=== PATIENT | male | born 1950 | race Caucasian/White ===

== ENCOUNTER 2017-03-07 09:00 | Day surgery (SDC) | payer MEDICARE, OTHER ==
[~2017-03-07] VITALS: Ht 185.4 cm; Wt 99.8 kg
[~2017-03-07 09:00] MED LIST: ACETAMINOPHEN 325 MG TAB PO PRN; BSS with VANC/TOB/EPI for EYE CASES IR ONE; CYCLOPENTOLATE 2% OPHTH SOLN 2ML BTL OS ONE; HEALON DUET (HEALON 10MG/ML 0.55ML & HEALON ENDOCOAT 30MG/ML 0.85ML) As Ordered ONE; LIDOCAINE 1% SDV 5 ML VIAL As Ordered ONE; LIDOCAINE 3.5 % 1ML OPHTH TOPICAL GEL OU ONE; MOXIFLOXACIN IN BSS 0.25MG/0.25ML INTRACAMERAL INJ (OR EYE ONLY)(J2280) As Ordered ONE; MULT1TAB10 PO; OFLOXACIN 0.3 % (OCUFLOX) OPTH SOL 5ML OS ONE; PHENYLEPHRINE 2.5% OPHTH SOL 2ML OS ONE; POVIDONE-IODINE 5% OPHTH PREP SOL 30ML As Ordered ONE; PRIL20CA9 PO; TRIAMCINOLONE PRES FR 40 MG/ML 1ML(TRIESENCE)(OR EYE ONLY)(J3300 PER 1MG) As Ordered ONE; TROPICAMIDE 1% OPHTH SOLN 2ML OS ONE
[2017-03-07] MEDS ORDERED: LR 500 ML IV ONE (09:15)
[2017-03-07] MEDS ORDERED: MIDAZOLAM INJ 2 MG/2 ML VIAL (J2250) As Ordered ONE (10:09)
[2017-03-07] MEDS ORDERED: fentaNYL 100 MCG/2 ML INJECTION (J3010) As Ordered ONE (10:09)
[2017-03-07 10:35] VITALS: BP 143/91
[2017-03-07] MEDS ORDERED: AcetaZOLAMIDE 500 MG ER CAP As Ordered ONE (10:47)
[2017-03-07] MEDS ORDERED: TRIMETHOBENZAMIDE 300 MG CAP PO PRN (11:00)
[2017-03-07] MEDS ORDERED: AcetaZOLAMIDE 500 MG ER CAP PO ONE (11:00)
== END 2017-03-07 10:53 | disposition home or self-care (01) ==
LOC: M SDC 09:00
PROVIDERS: ATTEND Ophthalmology
DX: H25.9 Unspecified age-related cataract (principal); K21.9 Gastro-esophageal reflux disease without esophagitis; Z79.899 Other long term (current) drug therapy
CPT/HCPCS: 66984; J2250; J2280; J3010; J3300; V2632

== ENCOUNTER 2017-12-12 08:02 | Day surgery (SDC) | payer MEDICARE ==
[~2017-12-12 08:02] MED LIST changes: +ACETAMINOPHEN 325 MG TAB PO; -ACETAMINOPHEN 325 MG TAB PO PRN; -BSS with VANC/TOB/EPI for EYE CASES IR ONE; -CYCLOPENTOLATE 2% OPHTH SOLN 2ML BTL OS ONE; -HEALON DUET (HEALON 10MG/ML 0.55ML & HEALON ENDOCOAT 30MG/ML 0.85ML) As Ordered ONE; -LIDOCAINE 1% SDV 5 ML VIAL As Ordered ONE; -LIDOCAINE 3.5 % 1ML OPHTH TOPICAL GEL OU ONE; -MOXIFLOXACIN IN BSS 0.25MG/0.25ML INTRACAMERAL INJ (OR EYE ONLY)(J2280) As Ordered ONE; -MULT1TAB10 PO; -OFLOXACIN 0.3 % (OCUFLOX) OPTH SOL 5ML OS ONE; -PHENYLEPHRINE 2.5% OPHTH SOL 2ML OS ONE; +PHENYLEPHRINE HCL 10 % OPHTH. SOL 5ML OD; -POVIDONE-IODINE 5% OPHTH PREP SOL 30ML As Ordered ONE; -PRIL20CA9 PO; -TRIAMCINOLONE PRES FR 40 MG/ML 1ML(TRIESENCE)(OR EYE ONLY)(J3300 PER 1MG) As Ordered ONE; -TROPICAMIDE 1% OPHTH SOLN 2ML OS ONE
[2017-12-12] MEDS: TROPICAMIDE 1% OPHTH SOLN 2ML OD (09:16)
[2017-12-12] MEDS: OFLOXACIN 0.3 % (OCUFLOX) OPTH SOL 5ML OD (09:16)
[2017-12-12] MEDS: PHENYLEPHRINE 2.5% OPHTH SOL 2ML OD (09:17)
[2017-12-12] MEDS: CYCLOPENTOLATE 2% OPHTH SOLN 2ML BTL OD (09:17)
[2017-12-12] MEDS: LIDOCAINE 3.5 % 1ML OPHTH TOPICAL GEL OU (09:18)
[2017-12-12] MEDS: POVIDONE-IODINE 5% OPHTH PREP SOL 30ML As Ordered (10:09)
[2017-12-12] MEDS ORDERED: MIDAZOLAM INJ 2 MG/2 ML VIAL (J2250) As Ordered (10:12)
[2017-12-12] MEDS ORDERED: fentaNYL 100 MCG/2 ML INJECTION (J3010) As Ordered (10:12)
[2017-12-12] MEDS: LIDOCAINE 1% SDV 5 ML VIAL As Ordered (10:13)
[2017-12-12] MEDS: TRIAMCINOLONE PRES FR 40 MG/ML 1ML(TRIESENCE)(OR EYE ONLY)(J3300 PER 1MG) As Ordered (10:13)
[2017-12-12] MEDS: MOXIFLOXACIN IN BSS 0.25MG/0.25ML INTRACAMERAL INJ (OR EYE ONLY)(J2280) As Ordered (10:13)
[2017-12-12] MEDS: BSS with VANC/TOB/EPI for EYE CASES IR (10:13)
[2017-12-12] MEDS: HEALON DUET (HEALON 10MG/ML 0.55ML & HEALON ENDOCOAT 30MG/ML 0.85ML) As Ordered (10:13)
[2017-12-12] MEDS ORDERED: TRIMETHOBENZAMIDE 300 MG CAP PO (10:45)
[2017-12-12] MEDS: AcetaZOLAMIDE 500 MG ER CAP PO (11:00)
== END 2017-12-12 11:05 | disposition home or self-care (01) ==
LOC: M SDC 08:02
DX: H25.9 Unspecified age-related cataract (principal); I50.9 Heart failure, unspecified; Z79.82 Long term (current) use of aspirin; K21.9 Gastro-esophageal reflux disease without esophagitis; Z87.891 Personal history of nicotine dependence; Z79.899 Other long term (current) drug therapy
CPT/HCPCS: 66984

== ENCOUNTER → 2018-02-26 | Outpatient (CLI) | payer MEDICARE ==
[2018-02-26 15:28] LABS: HEMATOCRIT 37.9 % (42.0-52.0); HEMOGLOBIN 13.1 g/dl (13.5-17.5); MEAN CORPUSCULAR HEMOGLOBIN 32.3 pg (27.0-33.0); MEAN CORPUSCULAR HGB CONC 34.6 g/dl (32.0-36.5); MEAN CORPUSCULAR VOLUME 93.3 fl (80.0-96.0); PLATELET COUNT, AUTOMATED 233 10^3/uL (150-450); RED BLOOD COUNT 4.06 10^6/uL (4.30-6.10); RED CELL DISTRIBUTION WIDTH 12.4 % (11.5-14.5); WHITE BLOOD COUNT 7.8 10^3/uL (4.0-10.0)
[2018-02-26 23:38] LABS: ANION GAP 8 MEQ/L (8-16); BLOOD UREA NITROGEN 22 MG/DL (7-18); CARBON DIOXIDE LEVEL 26 MEQ/L (21-32); CHLORIDE LEVEL 103 MEQ/L (98-107); GLOMERULAR FILTRATION RATE > 60.0 (>49); GLUCOSE, FASTING 101 MG/DL (70-100); POTASSIUM SERUM 4.1 MEQ/L (3.5-5.1); SODIUM LEVEL 137 MEQ/L (136-145)
== END ==
LOC: M LAB 14:55
DX: I50.42 Chronic combined systolic (congestive) and diastolic (congestive) heart failure (principal)

== ENCOUNTER → 2018-02-26 | Outpatient (CLI) | payer MEDICARE ==
[2018-02-26 15:28] LABS: BASO % 0.5 % (0.0-1.0); EOS # 0.2 10^3/uL (0.0-0.50); EOS % 2.3 % (0.0-3.0); HEMATOCRIT 37.9 % (42.0-52.0); HEMOGLOBIN 13.2 g/dl (13.5-17.5); IMMATURE GRANULOCYTE % 0.4 % (0-3.0); LYMPH # 2.8 10^3/uL (1.5-4.5); LYMPH % 35.4 % (24.0-44.0); MEAN CORPUSCULAR HEMOGLOBIN 32.4 pg (27.0-33.0); MEAN CORPUSCULAR HGB CONC 34.8 g/dl (32.0-36.5); MEAN CORPUSCULAR VOLUME 93.1 fl (80.0-96.0); MONO # 0.6 10^3/uL (0.0-0.8); NEUTROPHILS # 4.3 10^3/uL (1.8-7.7); NEUTROPHILS % 54.4 % (36.0-66.0); PLATELET COUNT, AUTOMATED 237 10^3/uL (150-450); RED BLOOD COUNT 4.07 10^6/uL (4.30-6.10); RED CELL DISTRIBUTION WIDTH 12.4 % (11.5-14.5); WHITE BLOOD COUNT 7.9 10^3/uL (4.0-10.0)
[2018-02-26 22:14] LABS: ANION GAP 11 MEQ/L (8-16); BLOOD UREA NITROGEN 22 MG/DL (7-18); CALCIUM LEVEL 9.2 MG/DL (8.8-10.2); CARBON DIOXIDE LEVEL 23 MEQ/L (21-32); CHLORIDE LEVEL 103 MEQ/L (98-107); CREATININE FOR GFR 0.92 MG/DL (0.70-1.30); GLOMERULAR FILTRATION RATE > 60.0 (>49); GLUCOSE, FASTING 99 MG/DL (70-100); POTASSIUM SERUM 4.2 MEQ/L (3.5-5.1); SODIUM LEVEL 137 MEQ/L (136-145)
== END ==
LOC: M LAB 14:43
DX: Z01.818 Encounter for other preprocedural examination (principal)
CPT/HCPCS: 80048

== ENCOUNTER → 2018-12-07 | Outpatient (CLI) | payer MEDICARE ==
[~2018-12-07] MED LIST changes: -ACETAMINOPHEN 325 MG TAB PO; +ASPI81TA85 PO; +CARV3.12 PO; +DULO1CAP3 PO; +ENTR1TAB7 PO; +FURO20TA2 PO; +MULT1TAB10 PO; +NEXI20CA PO; -PHENYLEPHRINE HCL 10 % OPHTH. SOL 5ML OD; +PRIL20CA9 PO; +SPIR-10 PO
[2018-12-07 16:44] LABS: FREE T4 0.73 NG/DL (0.76-1.46); THYROID STIMULATING HORMONE 1.86 uIU/ML (0.358-3.740)
== END ==
LOC: M WUC 14:23
PROVIDERS: ATTEND Internal Medicine Endocrinology, Diabetes & Metabolism
DX: E04.1 Nontoxic single thyroid nodule (principal)

== ENCOUNTER → 2018-12-24 | Outpatient (REF) | payer MEDICARE ==
[~2018-12-24] MED LIST changes: -DULO1CAP3 PO; +DULO1CAP6 PO
== END ==
LOC: M LAB REF 11:44
PROVIDERS: ATTEND Internal Medicine Endocrinology, Diabetes & Metabolism
DX: E07.1 Dyshormogenetic goiter (principal)

== ENCOUNTER → 2018-12-26 | Outpatient (CLI) | payer MEDICARE ==
[2018-12-26 17:55] LABS: BLOOD UREA NITROGEN 21 MG/DL (7-18); CALCIUM LEVEL 9.1 MG/DL (8.8-10.2); CARBON DIOXIDE LEVEL 26 MEQ/L (21-32); CHLORIDE LEVEL 105 MEQ/L (98-107); CREATININE FOR GFR 0.88 MG/DL (0.70-1.30); GLOMERULAR FILTRATION RATE > 60.0 (>49); GLUCOSE, FASTING 91 MG/DL (70-100); NT-PRO BNP 92 PG/ML (<125); POTASSIUM SERUM 4.8 MEQ/L (3.5-5.1); SODIUM LEVEL 138 MEQ/L (136-145)
== END ==
LOC: M WUC 12:02
PROVIDERS: ATTEND Internal Medicine Cardiovascular Disease
DX: I50.22 Chronic systolic (congestive) heart failure (principal)

== ENCOUNTER → 2019-01-03 | Outpatient (CLI) | payer MEDICARE ==
--- NOTE | 2019-01-07 19:48 | SLEEPCENT ---
DATE OF PROCEDURE: 01/03/2019 ORDERED BY: VANESSA Lehman Nocturnal polysomnography was performed for evaluation of sleep physiology in this patient with a history of excessive somnolence and nonrestorative sleep. 6 hours and 36 minutes of data were reviewed. There were 256 minutes of sleep identified. Sleep latency was prolonged and 76 minutes. REM latency was prolonged at 139 minutes. Sleep architecture showed fragmentation and poor progression. There were three brief REM cycles. Overall sleep efficiency 66.1%. The patient's electrocardiogram showed what appeared to be atrial fibrillation with controlled ventricular response rate of 68. EEG showed reasonably normal waveforms for awake and sleep. There were 422 respiratory events identified of 10 seconds in duration or greater for apnea-hypopnea index of 99.1. The events were primarily obstructive but 149 mixed and central apneas were seen. The events were more frequent in the supine posture. Arousals from respiratory events occurred 51.4 times per hour and oxygen desaturations were seen into the 80s. There was some limb activity but arousals from limb events were few. IMPRESSION: Severe obstructive sleep apnea syndrome (G47.33). Apnea-hypopnea index 99.1. RECOMMENDATIONS: The patient should be encouraged to return to the sleep disorder center at his earliest convenience for pressure therapy. In the interim, alcohol and sedative avoidance should be practiced and caution exercised during the operation of motor vehicles.
== END ==
LOC: M SLEEP 19:22
PROVIDERS: ATTEND Nurse Practitioner Family
DX: G47.33 Obstructive sleep apnea (adult) (pediatric) (principal)

== ENCOUNTER → 2019-02-12 | Outpatient (CLI) | payer MEDICARE ==
--- NOTE | 2019-02-14 20:53 | SLEEPCENT ---
DATE OF PROCEDURE: 02/12/2019 Nocturnal polysomnography was performed for the titration of pressure therapy in this patient with obstructive sleep apnea syndrome. Apnea-hypopnea index of 99.1. For testing the patient was fit with a ResMed Quattro full face mask of medium size, 4 cm of water pressure were applied to the circuit and the lights were extinguished. 7 hours and 21 minutes of data were reviewed. There are 300.5 minutes of sleep identified. Sleep latency was prolonged at 39 minutes. Rapid eye movement (REM) latency was normal at 93 minutes. Sleep architecture showed fragmentation, but the patient did experience REM on four cycles. Overall sleep efficiency 69%. The electrocardiogram showed an irregular supraventricular rhythm with an average heart rate of 65 beats per minute. EEG showed reasonably normal waveforms for awake and sleep. Persistence of respiratory events prompted an increase in continuous positive airway pressure (CPAP) and despite optimal mask fit and minimal air leak, the patient was changed to a bilevel device. Central apneas emerged prompting the addition of a backup rate. In retrospective review, best sleep was seen on a CPAP pressure of +12. Some limb activity was seen early in the study. Arousals from limb events on this occasion occurred 7.8 times per hour. IMPRESSION: Obstructive sleep apnea syndrome (G47.33). RECOMMENDATION: Nightly use of pressure therapy 12 cm of water.
== END ==
LOC: M SLEEP 19:42
PROVIDERS: ATTEND Nurse Practitioner Family
DX: G47.33 Obstructive sleep apnea (adult) (pediatric) (principal)

== ENCOUNTER → 2019-11-19 | Outpatient (REF) | payer MEDICARE | LOC: M LAB REF 14:17 | PROVIDERS: ATTEND Otolaryngology | DX: R22.1 Localized swelling, mass and lump, neck (principal) ==

== ENCOUNTER → 2019-12-06 | Outpatient (REF) | payer MEDICARE ==
[~2019-12-06] MED LIST changes: +BACI50OI TOP; +EXCETAB22 PO; +KEFL500C17 PO; +OXYC1TAB23 PO; +PEG1POW PO; +SENN-52 PO; +ZOFR4TAB16 PO
== END ==
LOC: M LAB REF 14:48
PROVIDERS: ATTEND Otolaryngology
DX: R22.1 Localized swelling, mass and lump, neck (principal)

== ENCOUNTER → 2019-12-10 | Outpatient (CLI) | payer MEDICARE ==
--- NOTE | 2019-12-11 10:35 | REP ---
PET/CT: HISTORY: Neck mass. A 3.1 cm exophytic right submandibular mass. Atypical cytology. Rule out distant metastasis. COMPARISONS: Comparison soft-tissue neck CT study November 21, 2019. TECHNIQUE: 50 minutes following the intravenous injection of a 9.32 mCi dose of F-18 FDG, three-dimensional PET scintigraphy is acquired from the skull base to the proximal thighs. Triplanar noncontrast CT scanning is acquired through the same anatomic range for attenuation correction, and image registration with scan parameters optimized to minimize radiation exposure to the patient. PET scintigraphy and CT datasets were fused and displayed on a workstation with multiplanar and projection display capability. PET/CT FINDINGS: There is abnormal hypermetabolic uptake in the right submandibular soft tissue mass. Maximum standard uptake value 13.80. There is increased uptake in the midline in the area of the soft palate, which is of uncertain significance. Maximum standard uptake values 6.49. Correlation with intraoral exam suggested. No other abnormal hypermetabolic uptake is seen in the head and neck soft tissues. The patient has a heterogeneous low density chronic thyroid nodule on the left, which does not show hypermetabolic uptake. Maximum SUV 2.58. No abnormal hypermetabolic uptake is seen in the thorax. No abnormal uptake is seen in the abdomen or pelvis. IMPRESSION: The known right submandibular mass is quite hypermetabolic. There is uptake in the region of the soft palate in the midline which should be correlated clinically. Otherwise negative PET scintigraphy. Electronically Signed by Maurice Bridges MD 12/11/2019 02:56 P
== END ==
LOC: M PLARAD 15:29
PROVIDERS: ATTEND Otolaryngology
DX: E04.1 Nontoxic single thyroid nodule (principal); R89.6 Abnormal cytological findings in specimens from other organs, systems and tissues; R93.0 Abnormal findings on diagnostic imaging of skull and head, not elsewhere classified
CPT/HCPCS: 78815; A9552

== ENCOUNTER → 2019-12-10 | Outpatient (CLI) | payer MEDICARE | LOC: M LABSMTC 11:29 | PROVIDERS: ATTEND Anesthesiology | DX: Z03.818 Encounter for observation for suspected exposure to other biological agents ruled out (principal); Z11.59 Encounter for screening for other viral diseases | CPT/HCPCS: C9803; U0002 ==

== ENCOUNTER 2019-12-12 07:13 | Observation (INO) | payer MEDICARE ==
[2019-12-12] VITALS (9 sets, daily range): BP systolic 128–180; BP diastolic 67–88; O2SAT 93–95
[~2019-12-12] VITALS: Ht 185.4 cm; Wt 104.3 kg
[~2019-12-12 07:13] MED LIST changes: -ASPI81TA85 PO; +ASPI81TA86 PO; -BACI50OI TOP; -EXCETAB22 PO; -KEFL500C17 PO; +LR 1,000 ML IV ONE; -OXYC1TAB23 PO; -PEG1POW PO; -SENN-52 PO; -ZOFR4TAB16 PO; +dexameTHASONE 4 MG/ML 1ML VIAL (J1100 PER 1MG) IV ONE
[2019-12-12] MEDS ORDERED: EXCETAB22 PO (07:36)
[2019-12-12] MEDS ORDERED: dexameTHASONE 4 MG/ML 1ML VIAL (J1100 PER 1MG) As Ordered ONE (07:57)
[2019-12-12] MEDS ORDERED: LIDOCAINE 2% 100MG/5ML SDV (FOR ANES.) As Ordered ONE (07:57)
[2019-12-12] MEDS ORDERED: propofoL 200 MG/20 ML VIAL As Ordered ONE (07:57)
[2019-12-12] MEDS ORDERED: ROCURONIUM BROMIDE 50 MG/5 ML VIAL As Ordered ONE (07:57)
[2019-12-12] MEDS ORDERED: ONDANSETRON 4MG/2ML VIAL As Ordered ONE ×2 (07:57→11:29)
[2019-12-12] MEDS ORDERED: MIDAZOLAM INJ 2MG/2ML VIAL (J2250 PER 1MG) As Ordered ONE (07:58)
[2019-12-12] MEDS ORDERED: fentaNYL 250 MCG/5 ML INJECTION (J3010) As Ordered ONE (07:58)
[2019-12-12] MEDS ORDERED: LACRILUBE (AKWA TEARS) OPHTH OINT 3.5 GM As Ordered ONE (07:59)
[2019-12-12 08:06] LABS: HEMATOCRIT 38.6 % (42.0-52.0); HEMOGLOBIN 13.3 g/dl (13.5-17.5); MEAN CORPUSCULAR HEMOGLOBIN 31.7 pg (27.0-33.0); MEAN CORPUSCULAR HGB CONC 34.5 g/dl (32.0-36.5); MEAN CORPUSCULAR VOLUME 92.1 fl (80.0-96.0); PLATELET COUNT, AUTOMATED 243 10^3/uL (150-450); RED BLOOD COUNT 4.19 10^6/uL (4.30-6.10); WHITE BLOOD COUNT 6.9 10^3/uL (4.0-10.0)
[2019-12-12] MEDS ORDERED: ETOMIDATE INJ 20MG/10ML VIAL As Ordered ONE (08:06)
[2019-12-12] MEDS ORDERED: METHYLENE BLUE 0.5% (5MG/ML) 10 ML AMP (PROVAYBLUE) As Ordered ONE (08:06)
[2019-12-12] MEDS ORDERED: LIDOCAINE W/EPINEPHRINE 1% 20ML VIAL As Ordered ONE (08:06)
[2019-12-12] MEDS ORDERED: OXYMETAZOLINE 0.05% NASAL SPRAY (AFRIN) As Ordered ONE (08:07)
[2019-12-12 08:28] LABS: BLOOD UREA NITROGEN 23 MG/DL (7-18); CALCIUM LEVEL 8.9 MG/DL (8.8-10.2); CARBON DIOXIDE LEVEL 24 MEQ/L (21-32); CHLORIDE LEVEL 107 MEQ/L (98-107); CREATININE FOR GFR 0.97 MG/DL (0.70-1.30); GLOMERULAR FILTRATION RATE > 60.0 (>49); GLUCOSE, FASTING 105 MG/DL (70-100); POTASSIUM SERUM 4.1 MEQ/L (3.5-5.1); SODIUM LEVEL 139 MEQ/L (136-145)
[2019-12-12] MEDS ORDERED: SILVER NITRATE APPLICATOR As Ordered ONE (10:00)
[2019-12-12] MEDS ORDERED: REMIFENTANIL 1MG 3ML VIAL As Ordered ONE ×2 (10:16→10:17)
[2019-12-12] MEDS ORDERED: ePHEDrine SULFATE 25 MG/5 ML(5MG/ML) SYRINGE As Ordered ONE (10:35)
[2019-12-12] MEDS ORDERED: ACETAMINOPHEN 1000MG 100ML IV BTL (OFIRMEV) (J0131 PER 10MG) As Ordered ONE (11:24)
[2019-12-12] MEDS ORDERED: SUGAMMADEX SODIUM 500 MG/5 ML VIAL (BRIDION) As Ordered ONE (11:30)
[2019-12-12] MEDS ORDERED: HYDROmorphone HCL 2 MG/ML 1ML VIAL (J1170) As Ordered ONE (13:34)
[2019-12-12] MEDS ORDERED: BACITRACIN OINTMENT 30GM TUBE As Ordered ONE (14:02)
[2019-12-12] MEDS ORDERED: LABETALOL 100MG/20ML VIAL As Ordered ONE ×2 (14:16→17:11)
[2019-12-12] MEDS ORDERED: METOCLOPRAMIDE INJ 10MG/2ML VIAL (J2765 PER 1) IV PRN (15:00)
[2019-12-12] MEDS ORDERED: PERCOCET 5MG/325MG TAB PO PRN (15:00)
[2019-12-12] MEDS ORDERED: ONDANSETRON 4MG/2ML VIAL IV PRN ×2 (15:00→15:30)
[2019-12-12] MEDS ORDERED: LR 1,000 ML IV SCH (15:00)
[2019-12-12] MEDS ORDERED: fentaNYL 100 MCG/2 ML INJECTION (J3010) IV PRN (15:00)
[2019-12-12] MEDS: LABETALOL 100MG/20ML VIAL IV SCH ×5 (15:14→20:03)
[2019-12-12] MEDS: HYDROMORPHONE HCL 0.5 MG/ 0.5 ML SYRINGE (J1170 PER 1) IV PRN ×2 (15:17→15:55)
[2019-12-12] MEDS ORDERED: NS 1,000 ML IV SCH (15:27)
[2019-12-12] MEDS ORDERED: MORPHINE 4 MG/ML 1ML VIAL/SYRINGE (J2270) IV PRN (15:45)
--- NOTE | 2019-12-12 15:57 | HPEPDOC ---
General Date of Admission 12/12/2019 Date of Service: Dec 12, 2019 Chief Complaint The patient is a 69-year-old male admitted with a reason for visit of Right Neck Mass. Source: Patient, Old records Exam Limitations: Clinical conditions Severity: Moderate Associated Symptoms: Other (throat pain) History of Present Illness Patient is a 69 yo male with PMH of systolic CHF LVEF 25-30% s/p defibrillator placement, ENRRIQUE, and right sided neck mass admitted to [facility] for observation after same day surgery on 12/12/2019 with direct suspension microlaryncoscopy with major biopsy and right modified radical neck dissection. Pt currently denies any chest pain, palpitation, dyspnea, neck pain, abdominal pain, nausea, or vomiting. He reported some sore throat after the procedure/intubation. Pt voices no other complaints Home Medications Scheduled Aspirin (Aspir 81) 81 Mg Tab, 81 MG PO DAILY, (Reported) Bacitracin (Bacitracin) 28.4 Gm Oint...g., 0 DOSE TOP TID Carvedilol (Carvedilol) 3.125 Mg Tab, 3.125 MG PO BID, (Reported) Cephalexin (Keflex) 500 Mg Capsule, 1 CAP PO BID Duloxetine Hcl (Duloxetine HCl) 60 Mg Cap, 60 MG PO DAILY, (Reported) Esomeprazole Magnesium (Nexium) 20 Mg Cap, 40 MG PO DAILY, (Reported) Furosemide (Furosemide) 20 Mg Tab, 20 MG PO DAILY, (Reported) Sacubitril/Valsartan (Entresto 49 mg-51 mg Tablet) 1 Tab Tab, 1 TAB PO BID, (Rep orted) Spironolactone (Spironolactone) 25 Mg Tab, 25 MG PO DAILY, (Reported) Scheduled PRN Ondansetron HCl (Zofran) 4 Mg Tablet, 4 MG PO Q6-8HP PRN for nausea/vomiting Oxycodone HCl/Acetaminophen (Oxycodone-Acetaminophen 5-325) 1 Each Tablet, 1 TAB PO BIDP PRN for pain Polyethylene Glycol 3350 (Polyethylene Glycol 3350) 17 Gm Powd.pack, 1 PKT PO DAILYPRN PRN for CONSTIPATION Sennosides/Docusate Sodium (Senna Plus Tablet) 1 Each Tablet, 1 TAB PO DAILYPRN PRN for CONSTIPATION Miscellaneous Medications Aspirin/Acetaminophen/Caffeine (Excedrin Migraine Geltab) 1 Each Tablet, 1 EACH PO, (Reported) Allergies Coded Allergies: No Known Allergies (Unverified , 12/12/17) Past Medical History Medical History 1. Idiopathic dilated cardiomyopathy 2. Systolic congestive heart failure, LVEF 25-30% s/p ICD placement 3. GERD 4. 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 Pt reported lower back fusion, s/p unspecified back surgery 6. ENRRIQUE Surgical History Cardiac cath [id number] CAD, normal systemic pressure ICD placement, biotronic single lead device Inventra 7 VR-T DX vt 02/2018 Dr. Larios. Right total knee replacement 2018 Resection of SCC from lower lip 02/2018 Septoplasty Family History Father-lung CA Mother-heart failure Social History * Smoker: Denies lives at home A-FIB/CHADSVASC A-FIB History Current/History of A-Fib/PAF?: No Review of Systems Constitutional: Denies: Chills, Fever ENT: Reports: Other Symptoms (Denies neck pain. Some sore throat after the procedure) Pulmonary: Denies: Dyspnea Cardiovascular: Denies: Chest Pain Gastrointestinal: Denies: Nausea, Vomiting, Abdominal Pain Physical Examination General Exam: Positive: Alert, Cooperative, Mild Distress, Other (Obese, hoarse voice) Eye Exam: Positive: Conjunctiva & lids normal; Negative: Sclera icteric ENT Exam: Positive: Mucous membr. moist/pink, Tongue Midline, Other ENT (able to move tongue bilaterally. ) Neck Exam: Positive: Other (2 VIKI drainage on right side neck with blood. Incisions on right sided neck); Negative: Supple Chest Exam: Positive: Normal air movement, Rales (mild on left), Diminished (bilaterally); Negative: Rhonchi, Wheezing Heart Exam: Positive: Rate Normal, Regular Rhythm; Negative: Murmurs Abdomen Exam: Positive: BS Hypoactive, Soft; Negative: Tenderness Extremity Exam: Negative: Edema, Tenderness, Swelling Skin Exam: Positive: Nl turgor and temperature Neuro Exam: Positive: Other (hoarseness. Decreased speech d/t pain) Psych Exam: Positive: Mental status NL, Mood NL, Memory Intact, Oriented x 3; Negative: Anxiety Vital Signs Vital Signs Date Time Temp Pulse Resp B/P (MAP) Pulse Ox O2 Delivery O2 Flow Rate FiO2 12/12/19 15:17 16 94 Nasal Cannula 4.0 12/12/19 15:14 87 177/77 12/12/19 08:10 97 Laboratory Data Labs 24H Laboratory Tests 2 12/12/19 07:53: Nucleated Red Blood Cells % (auto) 0.0, Anion Gap 8, Glomerular Filtration Rate > 60.0, Calcium Level 8.9 CBC/BMP Laboratory Tests 12/12/19 07:53 Assessment/Plan Pt is a 69 yo male with hx of idiopathic dilated cardiomyopathy and chronic systolic CHF EF 25-30% s/p ICD placement in 2017 admitted to [facility] for observation d/t right neck mass s/p direct suspension microlaryngoscopy with major biopsy and right modified radical neck dissection 1. Right neck mass s/p right modified radical neck dissection. [address] on right side neck. Discussed with ENT Dr. Maciel, will have pt on soft diet, high suctioning for VIKI drain, elevate head of BED. Pt already had cefuroximie 1.5g IV Q8H and bacitracin topical TID ordered. ENRRIQUE protocol but will not have pt on CPAP d/t neck surgery, will be on NC; cont pulse ox monitoring to keep pulse ox>94%. Nursing order to instruct patient to take care of VIKI drain. Morphine, tylenol, and zofran PRN. Pt will be admitted to PCU with vital signs Q4H. 2. Dilated idiopathic cardiomyopathy. PMH of idiopathic dilated cardiomyopathy. Resume home med carvedilol, Entresto, lasix and spironolactone. 3. Chronic systolic congestive heart failure, LVEF 25-30% s/p ICD placement 02/2018, currently compensated. ICD last checked 09/2019 normal function>98% sensed. LVEF 25-30% by echo 10/05/2018 in [place]. Resume home med carvedilol, Entresto, lasix and spironolactone. 4. Elevated blood pressure without diagnosis of hypertension, 2/2 pain. Pt received IV labetalol, cont to monitor BP. Resume home carvedilol, lasix, and s pironolactone. 5. GERD. Will have pt on IV protonix now. Hold home med nexium for now. 6. Non-obstructive CAD. Hx of nonobstructive CAD by cardiac cath 09/20/2018. Currently denies any chest pain, palpitation, or dyspnea. Cont home med carvedilol and aspirin. 7. ENRRIQUE. ENRRIQUE protocol without CPAP d/t neck surgery. Keep oxygen >94%. Elevated bed of head DVT prophylaxis: lovenox GI prophylaxis: protonix DISPO: right neck mass s/p right radical neck dissection, monitor. [address] on right side neck. Likely discharge 24-48hr if clinically stable Plan / VTE VTE Prophylaxis Ordered?: Yes Plan Diet: Advance Activity: Bedrest Therapy: PT Diagnostics: Check Labs, Repeat Labs in AM Anticipated Discharge: Home GME ATTESTATION I have personally evaluated and examined the patient. Discussed with reside nt/student regarding plan of care and agree with the above assessment and plan. MALKA SALDANA DO Dec 12, 2019 15:57 TIM GIRON MD Dec 20, 2019 08:36
[2019-12-12] MEDS ORDERED: MIRALAX *UNIT DOSE* 17GM PACKET PO PRN (16:30)
[2019-12-12] MEDS ORDERED: PANTOPRAZOLE 40MG VIAL (C9113 PER 1) IV SCH (18:00)
[2019-12-12] MEDS: ACETAMINOPHEN TAB 650MG DOSE (2X325MG) PO PRN (18:23)
[2019-12-12] MEDS: BACITRACIN OINTMENT 30GM TUBE TOP SCH ×2 (19:00→21:05)
[2019-12-12] MEDS: SPIRONOLACTONE 25 MG TAB PO SCH (20:57)
[2019-12-12] MEDS: FUROSEMIDE 20 MG TAB PO SCH (20:57)
[2019-12-12] MEDS ORDERED: ENOXAPARIN 30MG/0.3ML SYRINGE (J1650 PER 10MG) SC SCH (21:00)
[2019-12-12] MEDS: ENTRESTO 49-51MG TABLET (SACUBITRIL/VALSARTAN) PO SCH (21:04)
[2019-12-13] VITALS (9 sets, daily range): BP systolic 129–166; BP diastolic 64–75; O2SAT 93–96
[2019-12-13] MEDS: ACETAMINOPHEN TAB 650MG DOSE (2X325MG) PO PRN ×2 (00:49→08:23)
[2019-12-13 05:37] LABS: HEMATOCRIT 38.4 % (42.0-52.0); HEMOGLOBIN 13.1 g/dl (13.5-17.5); MEAN CORPUSCULAR HEMOGLOBIN 31.8 pg (27.0-33.0); MEAN CORPUSCULAR HGB CONC 34.1 g/dl (32.0-36.5); MEAN CORPUSCULAR VOLUME 93.2 fl (80.0-96.0); PLATELET COUNT, AUTOMATED 242 10^3/uL (150-450); RED BLOOD COUNT 4.12 10^6/uL (4.30-6.10); WHITE BLOOD COUNT 13.1 10^3/uL (4.0-10.0)
[2019-12-13 05:55] LABS: BLOOD UREA NITROGEN 12 MG/DL (7-18); CALCIUM LEVEL 9.1 MG/DL (8.8-10.2); CARBON DIOXIDE LEVEL 29 MEQ/L (21-32); CHLORIDE LEVEL 108 MEQ/L (98-107); CREATININE FOR GFR 0.95 MG/DL (0.70-1.30); GLOMERULAR FILTRATION RATE > 60.0 (>49); GLUCOSE, FASTING 125 MG/DL (70-100); POTASSIUM SERUM 4.4 MEQ/L (3.5-5.1); SODIUM LEVEL 142 MEQ/L (136-145)
[2019-12-13] MEDS ORDERED: CARVedilol 3.125 MG TAB PO SCH (06:00)
[2019-12-13] MEDS: SPIRONOLACTONE 25 MG TAB PO SCH (08:23)
[2019-12-13] MEDS: FUROSEMIDE 20 MG TAB PO SCH (08:23)
[2019-12-13] MEDS: ENTRESTO 49-51MG TABLET (SACUBITRIL/VALSARTAN) PO SCH (08:23)
[2019-12-13] MEDS: BACITRACIN OINTMENT 30GM TUBE TOP SCH (08:24)
[2019-12-13] MEDS ORDERED: ASPIRIN 81 MG ENTERIC TAB PO SCH (09:00)
[2019-12-13] MEDS ORDERED: SENOKOT S TAB PO SCH (09:00)
[2019-12-13] MEDS ORDERED: DULoxetine 30 MG CAP (CYMBALTA) PO SCH (09:00)
[2019-12-13] MEDS ORDERED: ZOFR4TAB16 PO (10:24)
[2019-12-13] MEDS ORDERED: BACI50OI TOP (10:24)
[2019-12-13] MEDS ORDERED: OXYC1TAB23 PO (10:25)
[2019-12-13] MEDS ORDERED: PEG1POW PO (10:27)
[2019-12-13] MEDS ORDERED: SENN-52 PO (10:27)
[2019-12-13] MEDS ORDERED: KEFL500C17 PO (10:31)
--- NOTE | 2019-12-13 13:59 | DS.PDOC ---
Discharge Summary General Date of Admission Dec 12, 2019 at 16:35 Date of Discharge 12/13/2019 Discharge Summary PROCEDURES PERFORMED DURING STAY: Direct suspension microlaryngoscopy with major biopsy and right modified radical neck dissection 12/12/[address] Maciel ADMITTING DIAGNOSES: 1. Right neck mass s/p right modified radical neck dissection. [address] on right side neck 2. Dilated idiopathic cardiomyopathy 3. Chronic systolic congestive heart failure, LVEF 25-30% s/p ICD placement 0 02/2018, compensated 4. Elevated blood pressure without diagnosis of hypertension, 2/2 pain, resolved 5. GERD 6. Non-obstructive CAD 7. ENRRIQUE DISCHARGE DIAGNOSES: 1. Right neck mass s/p right modified radical neck dissection. [address] on right side neck 2. Dilated idiopathic cardiomyopathy 3. Chronic systolic congestive heart failure, LVEF 25-30% s/p ICD placement 02/2018, compensated 4. Elevated blood pressure without diagnosis of hypertension, 2/2 pain, resolved 5. GERD 6. Non-obstructive CAD 7. ENRRIQUE COMPLICATIONS/CHIEF COMPLAINT: Right Neck Mass. HISTORY OF PRESENT ILLNESS: Patient is a 69 yo male with PMH of systolic CHF LVEF 25-30% s/p defibrillator placement, ENRRIQUE, and right sided neck mass admitted to [facility] for observation after same day surgery on 12/12/2019 with direct susp ension microlaryncoscopy with major biopsy and right modified radical neck dissection. Upon admission, pt denies any chest pain, palpitation, dyspnea, neck pain, abdominal pain, nausea, or vomiting. He reported some sore throat after the procedure/intubation. Pt voiced no other complaints upon admission HOSPITAL COURSE: Discussed with ENT Dr. Maciel, will have pt on soft diet, high suctioning for VIKI drain, elevate head of BED; pt's cefuroximie 1.5g IV Q8H and bacitracin topical TID was continued. Patient is being placed on ENRRIQUE protocol on NC not CPAP d/t neck surgery with cont pulse ox monitoring to keep pulse ox>94%. A nursing order to instruct patient to take care of VIKI drain was placed with Morphine, tylenol, and zofran PRN. His home med carvedilol, Entresto, lasix and spironolactone, and aspirin were resumed. On the day of discharge, Pt is saturating at 96% on RA with blood pressure 140/64.pt reported mild throat discomfort after procedure/intubation, denies neck pain, chest pain, fever, nausea, vomiting, or abdominal pain. Pt expressed the wish to go home. Discussed with Dr. Maciel, and patient was ready for discharge with PO Keflex 500mg BID for 10 days with topical bacitracin TID. Phone call made to floor nurse and it was confirmed that patient had been instructed VIKI drain care yesterday including making sure the bulb is deflated after emptying the bulb. 2JP drain output was 45 and 85ml on 12/12/2019, and pt will call ENT office for VIKI drain removal if drainage<20ml in 24 hours. Follow up with ENT in 7-10 days. DISCHARGE MEDICATIONS: Please see below. ALLERGIES: Please see below. PHYSICAL EXAMINATION ON DISCHARGE: VITAL SIGNS: Please see below. General Exam: Alert, cooperative, not in acute distress, obese Eye Exam: Conjunctiva & lids normal, no sclera icterus bilaterally ENT Exam: Mucous membr. moist/pink, Tongue Midline,able to move tongue bilaterally Neck Exam: 2 VIKI drainage on right side neck with blood inside drainage bulb. Incisions on right sided neck closed. No obvious mod or large size hematoma was able to be appreciated around right side neck Chest Exam: Normal air movement, CTA b/l, no rales, rhonchi, or wheezing Heart Exam: RRR, no murmurs Abdomen Exam: Bowel sound aus in all 4 quadrants, Soft, no guarding or distention, no tenderness in all 4 quadrants Extremity Exam: No edema, tenderness, or swelling in b/l LE Skin Exam: Normal skin turgor and temperature Neuro Exam: Memory and cognitive function grossly intact Psych Exam: Mental status and mood wnl, Memory Intact LABORATORY DATA: Please see below. IMAGING: [None during this admission] PROGNOSIS: [Fair to good] ACTIVITY: [As tolerated]. DIET: [As tolerated/soft diet] DISPOSITION: 01 Home, Self-Care. DISCHARGE PLAN AND INSTRUCTIONS: 1. Drain care. Make sure VIKI drain bulb is deflated after emptying for proper suctioning. Apply bacitrain to right neck incision TID. Call ENT office if each VIKI drain output<20ml for 24 hours. Follow up with Dr. Maciel in 7-10 days ITEMS TO FOLLOWUP ON ON OUTPATIENT: 1. VIKI drain removal 2. Right neck mass/right neck radical dissection pathology result DISCHARGE CONDITION: [Stable]. TIME SPENT ON DISCHARGE: Greater than [37] minutes. Vital Signs/I&Os Vital Signs Date Time Temp Pulse Resp B/P (MAP) Pulse Ox O2 Delivery O2 Flow Rate FiO2 12/13/19 08:00 98.1 86 18 140/64 (89) 96 Room Air 12/13/19 04:00 4.0 12/12/19 14:30 100 I&O- Last 24 Hours up to 6 AM 12/13/19 06:00 Intake Total 1910 ml Output Total 3155 ml Balance -1245 ml Laboratory Data Labs 24H Laboratory Tests 2 12/12/19 16:02: OT-Cgl-R-Type Natriuretic Peptide 245H 12/13/19 05:10: Nucleated Red Blood Cells % (auto) 0.0, Anion Gap 5L, Glomerular Filtration Rate > 60.0, Calcium Level 9.1 CBC/BMP Laboratory Tests 12/13/19 05:10 Discharge Medications Scheduled Aspirin (Aspir 81) 81 Mg Tab, 81 MG PO DAILY, (Reported) Bacitracin (Bacitracin) 28.4 Gm Oint...g., 0 DOSE TOP TID Carvedilol (Carvedilol) 3.125 Mg Tab, 3.125 MG PO BID, (Reported) Cephalexin (Keflex) 500 Mg Capsule, 1 CAP PO BID Duloxetine Hcl (Duloxetine HCl) 60 Mg Cap, 60 MG PO DAILY, (Reported) Esomeprazole Magnesium (Nexium) 20 Mg Cap, 40 MG PO DAILY, (Reported) Furosemide (Furosemide) 20 Mg Tab, 20 MG PO DAILY, (Reported) Sacubitril/Valsartan (Entresto 49 mg-51 mg Tablet) 1 Tab Tab, 1 TAB PO BID, (Reported) Spironolactone (Spironolactone) 25 Mg Tab, 25 MG PO DAILY, (Reported) Scheduled PRN Ondansetron HCl (Zofran) 4 Mg Tablet, 4 MG PO Q6-8HP PRN for nausea/vomiting Oxycodone HCl/Acetaminophen (Oxycodone-Acetaminophen 5-325) 1 Each Tablet, 1 TAB PO BIDP PRN for pain Polyethylene Glycol 3350 (Polyethylene Glycol 3350) 17 Gm Powd.pack, 1 PKT PO DAILYPRN PRN for CONSTIPATION Sennosides/Docusate Sodium (Senna Plus Tablet) 1 Each Tablet, 1 TAB PO DAILYPRN PRN for CONSTIPATION Miscellaneous Medications Aspirin/Acetaminophen/Caffeine (Excedrin Migraine Geltab) 1 Each Tablet, 1 EACH PO, (Reported) Allergies Coded Allergies: No Known Allergies (Unverified , 12/12/17) GME ATTESTATION GME ATTESTATION My faculty preceptor for this patient encounter was physically present during the encounter and was fully available. All aspects of the patient interview, examination, medical decision making process, and medical care plan development were reviewed and approved by the faculty preceptor. The faculty preceptor is aware and concurs with the plan as stated in the body of this note and will attest to such by his/her cosignature. ATTENDING NOTE I have personally evaluated and examined the patient. Discussed with resident/student regarding plan of care and agree with the above assessment and plan. MALKA SALDANA DO Dec 13, 2019 13:59 TIM GIRON MD Dec 30, 2019 07:59
[2020-01-01] MEDS ORDERED: CARV25TA PO (13:33)
[2020-01-01] MEDS ORDERED: ENTR1TAB4 PO (13:33)
[2020-01-02] MEDS ORDERED: BAYE325T13 PO (16:16)
== END 2019-12-13 13:00 | disposition home or self-care (01) ==
LOC: M SDC 07:13 → M PCU 16:35
PROVIDERS: ADMIT Student in an Organized Health Care Education/Training Program; ATTEND Otolaryngology
DX: C76.0 Malignant neoplasm of head, face and neck (principal); C77.0 Secondary and unspecified malignant neoplasm of lymph nodes of head, face and neck; I50.22 Chronic systolic (congestive) heart failure; I42.0 Dilated cardiomyopathy; M43.26 Fusion of spine, lumbar region; R03.0 Elevated blood-pressure reading, without diagnosis of hypertension; G47.33 Obstructive sleep apnea (adult) (pediatric); Z95.810 Presence of automatic (implantable) cardiac defibrillator; Z79.82 Long term (current) use of aspirin; Z79.899 Other long term (current) drug therapy; K21.9 Gastro-esophageal reflux disease without esophagitis
CPT/HCPCS: 31237; 31536; 36415; 38724; 80048; 83880; 85027; 88304; 88305; 88307; 96365; 96366; 96375; 97161; C9113; G0378; J0131; J0697; J1100; J1170; J2250; J2405; J3010; Q9968

== ENCOUNTER → 2020-01-02 | Outpatient (CLI) | payer MEDICARE ==
[~2020-01-02] MED LIST changes: +BACI50OI TOP; +BAYE325T13 PO; +CARV25TA PO; +ENTR1TAB4 PO; +EXCETAB22 PO; +KEFL500C17 PO; -LR 1,000 ML IV ONE; +OXYC1TAB23 PO; +PEG1POW PO; +SENN-52 PO; +ZOFR4TAB16 PO; -dexameTHASONE 4 MG/ML 1ML VIAL (J1100 PER 1MG) IV ONE
== END ==
LOC: M ONCR 13:52
PROVIDERS: ATTEND Radiology Radiation Oncology
DX: C76.0 Malignant neoplasm of head, face and neck (principal)

== ENCOUNTER → 2020-01-14 | Outpatient (CLI) | payer MEDICARE ==
[~2020-01-14] MED LIST changes: +LIDOCAINE 1% MDV 20ML VIAL As Ordered ONE
--- NOTE | 2020-03-06 08:11 | REP ---
PICC LINE INSERTION WITH SITE RITE: The procedure was performed under the direct supervision of Dr. Bridges. PROCEDURE: The risks and benefits of the procedure were explained to the patient and informed consent was obtained. The right basilic vein was localized using ultrasound guidance. The skin was prepped and draped in a sterile fashion. 1% lidocaine was used as a local anesthetic. Using ultrasound guidance, the basilic vein was cannulated and a 0.018 guidewire was inserted and advanced to the SVC using fluoroscopic guidance. The needle was removed and a 4.5 Wallisian dilator and peel-away sheath was inserted over the guidewire. A 4.5 Wallisian single lumen catheter was cut to a length of 42 cm. The dilator was removed and the catheter was inserted over the guidewire with the tip ending in the SVC. The peel-away sheath was removed and the catheter was flushed with heparinized saline as per hospital protocol. The catheter was affixed to the skin and a sterile dressing was applied. The patient tolerated the procedure well and there were no immediate complications. After the appropriate amount of marked convalescence, the patient was discharged from the department. 0.1 minutes of fluoroscopy time was utilized for this procedure. SHIV
== END ==
LOC: M IRPRO 09:35
PROVIDERS: ATTEND Internal Medicine Hematology & Oncology
DX: C76.0 Malignant neoplasm of head, face and neck (principal)
CPT/HCPCS: 36571; 76937; C1751; J1642; J1644

== ENCOUNTER → 2022-01-24 | Outpatient (CLI) | payer MEDICARE ==
[~2022-01-24] MED LIST changes: +GASTROGRAFIN SOLUTION 30ML (Q9963) As Ordered ONE; +ISOVUE-370 76% 100ML VIAL As Ordered ONE; -LIDOCAINE 1% MDV 20ML VIAL As Ordered ONE; -PEG1POW PO; +POLY17PO18 PO; +VITMTA PO
== END ==
LOC: M RAD 08:59
PROVIDERS: ATTEND Nurse Practitioner
DX: C41.1 Malignant neoplasm of mandible (principal); K76.89 Other specified diseases of liver; Z98.1 Arthrodesis status
CPT/HCPCS: 71260; 74177; Q9963; Q9967

== ENCOUNTER → 2022-11-09 | Outpatient (CLI) | payer MEDICARE ==
[~2022-11-09] MED LIST changes: +CARV6.25 PO; +ENTR1TAB PO; +ESOM1CAP5 PO; -GASTROGRAFIN SOLUTION 30ML (Q9963) As Ordered ONE; -ISOVUE-370 76% 100ML VIAL As Ordered ONE
== END ==
LOC: M WUC 13:41
PROVIDERS: ATTEND Internal Medicine
DX: R07.89 Other chest pain (principal); M54.9 Dorsalgia, unspecified

== ENCOUNTER 2022-11-10 00:27 | Inpatient (IN) | payer MEDICARE ==
[2022-11-10] VITALS (13 sets, daily range): BP systolic 120–150; BP diastolic 57–103
[~2022-11-10] VITALS: Ht 185.4 cm; Wt 99.0 kg
[~2022-11-10 00:27] MED LIST changes: -CARV6.25 PO; -ENTR1TAB PO; -ESOM1CAP5 PO
[2022-11-10 01:57] LABS: BASO % 0.4 % (0.0-1.0); EOS # 0.1 10^3/uL (0.0-0.5); EOS % 1.3 % (0.0-3.0); HEMOGLOBIN 11.7 g/dl (13.5-17.5); LYMPH # 0.9 10^3/uL (1.5-5.0); LYMPH % 8.8 % (24.0-44.0); MEAN CORPUSCULAR HGB CONC 34.4 g/dl (32.0-36.5); MEAN CORPUSCULAR VOLUME 89.9 fl (80.0-96.0); MONO # 0.8 10^3/uL (0.0-0.8); MONO % 7.4 % (2.0-8.0); NEUTROPHILS # 8.7 10^3/uL (1.5-8.5); NEUTROPHILS % 81.6 % (36.0-66.0); PLATELET COUNT, AUTOMATED 219 10^3/uL (150-450); RED BLOOD COUNT 3.78 10^6/uL (4.30-6.10); WHITE BLOOD COUNT 10.6 10^3/uL (4.0-10.0)
[2022-11-10 02:09] LABS: INR 1.05; PROTHROMBIN TIME 13.9 SECONDS (12.5-14.5)
[2022-11-10 02:10] LABS: PARTIAL THROMBOPLASTIN TIME 33.5 SECONDS (24.8-34.2)
[2022-11-10] MEDS ORDERED: MORPHINE 4 MG/ML 1ML VIAL IV ONE (03:00)
[2022-11-10] MEDS ORDERED: cefTRIAXone SOD 1 GM in D5W MINI-BAG PLUS 50 ML IV ONE ×2 (04:05→12:00)
[2022-11-10] MEDS ORDERED: CARV6.25 PO (04:30)
[2022-11-10] MEDS ORDERED: ENTR1TAB PO (04:30)
[2022-11-10] MEDS ORDERED: HOME MED LIST COMPLETE! XX SCH (04:30)
[2022-11-10] MEDS ORDERED: ESOM1CAP5 PO (04:43)
[2022-11-10] MEDS ORDERED: MOM 30ML SUSPENSION UDC PO PRN (05:25)
[2022-11-10 05:38] LABS: RSV AMPLIFICATION NEGATIVE (NEGATIVE)
[2022-11-10] MEDS ORDERED: MORPHINE 2 MG/ML 1ML VIAL IV PRN (05:45)
[2022-11-10] MEDS ORDERED: HEPARIN SOD (PORCINE) 5000UNITS/ML 1ML VIAL/SYRINGE SC SCH (06:00)
[2022-11-10 06:53] LABS: HEMATOCRIT 32.7 % (42.0-52.0); HEMOGLOBIN 11.1 g/dl (13.5-17.5); MEAN CORPUSCULAR HEMOGLOBIN 30.8 pg (27.0-33.0); MEAN CORPUSCULAR HGB CONC 33.9 g/dl (32.0-36.5); MEAN CORPUSCULAR VOLUME 90.8 fl (80.0-96.0); PLATELET COUNT, AUTOMATED 207 10^3/uL (150-450); WHITE BLOOD COUNT 9.3 10^3/uL (4.0-10.0)
[2022-11-10 06:56] LABS: ALBUMIN 3.4 G/DL (3.2-5.2); ALKALINE PHOSPHATASE 66 U/L (46-116); ALT/SGPT 19 U/L (7.0-40); AST/SGOT 18 U/L (<34); BILIRUBIN,TOTAL 0.6 MG/DL (0.3-1.2); BLOOD UREA NITROGEN 13 MG/DL (9-23); CALCIUM LEVEL 8.8 MG/DL (8.3-10.6); CARBON DIOXIDE LEVEL 27 MMOL/L (20-31); CHLORIDE LEVEL 102 MMOL/L (98-107); CREATININE FOR GFR 0.69 MG/DL (0.70-1.30); GLOMERULAR FILTRATION RATE > 60.0 (>42); GLUCOSE, FASTING 90 MG/DL (74-106); POTASSIUM SERUM 4.1 MMOL/L (3.5-5.1); SODIUM LEVEL 135 MMOL/L (136-145); TOTAL PROTEIN 6.3 G/DL (5.7-8.2)
[2022-11-10] MEDS: ALBUTEROL 90 MCG/ACT 8GM HFA INHALER INH SCH ×3 (07:05→19:09)
[2022-11-10] MEDS: LIDOCAINE 5% (LIDODERM) PATCH TD SCH (09:00)
[2022-11-10] MEDS: ENTRESTO 24-26MG TABLET (SACUBITRIL/VALSARTAN) PO SCH ×2 (09:07→21:07)
[2022-11-10] MEDS: CARVedilol 6.25 MG TAB PO SCH ×2 (09:07→21:08)
[2022-11-10] MEDS: AZITHROMYCIN 250MG TABLET PO SCH (09:08)
[2022-11-10] MEDS: DULoxetine 30MG CAPSULE (CYMBALTA) PO SCH (09:08)
[2022-11-10] MEDS ORDERED: BISACODYL 10MG SUPP PR PRN (09:15)
[2022-11-10] MEDS ORDERED: LEVALBUTEROL 1.25MG/3ML NEB SOLN NEB PRN (09:15)
[2022-11-10] MEDS ORDERED: ACETAMINOPHEN TAB 650MG DOSE (2X325MG) PO PRN (09:15)
[2022-11-10] MEDS ORDERED: ONDANSETRON 4MG 2ML VIAL IV PRN ×4 (09:15→20:20)
[2022-11-10] MEDS: PANTOPRAZOLE 40MG TAB (PROTONIX) PO SCH (09:47)
[2022-11-10] MEDS: DOCUSATE SODIUM 100MG CAPSULE PO SCH ×2 (09:47→21:08)
[2022-11-10] MEDS: KETOROLAC 30 MG/ML 1ML VIAL IV SCH ×3 (09:47→21:07)
[2022-11-10] MEDS: PERCOCET 5MG/325MG TAB PO PRN ×2 (10:55→11:05)
[2022-11-10] MEDS ORDERED: diphenhydrAMINE 50MG/ML VIAL IV PRN ×2 (13:35→18:40)
[2022-11-10] MEDS ORDERED: NALOXONE INJ 0.4MG/1ML VIAL IV PRN ×2 (13:35→18:40)
[2022-11-10] MEDS ORDERED: FENTANYL/BUPIVACAINE/NACL BAG 250 ML EPIDURAL SCH ×2 (13:35→15:00)
[2022-11-10] MEDS ORDERED: NALBUPHINE HCL 10 MG/ML 1ML AMP IV PRN ×2 (13:35→18:40)
[2022-11-10] MEDS ORDERED: EPIDURAL/PCA KEYS XX PRN ×2 (13:35→18:40)
[2022-11-10] MEDS ORDERED: LIDOCAINE 1% MDV 20ML VIAL As Ordered ONE (13:44)
[2022-11-10] MEDS ORDERED: LIDOCAINE 1% SDV 5ML VIAL As Ordered ONE ×2 (13:45→13:47)
[2022-11-10] MEDS: LEVALBUTEROL 1.25MG/3ML NEB SOLN NEB SCH ×2 (15:07→19:09)
[2022-11-10] MEDS ORDERED: METOCLOPRAMIDE INJ 10MG/2ML VIAL IV PRN (18:40)
[2022-11-10] MEDS: BUPIVACAINE/NACL BAG 250 ML EPIDURAL SCH (20:05)
[2022-11-11] VITALS (8 sets, daily range): BP systolic 119–133; BP diastolic 62–63; O2SAT 93–94
[2022-11-11] MEDS: ALBUTEROL 90 MCG/ACT 8GM HFA INHALER INH SCH ×4 (01:10→18:53)
[2022-11-11] MEDS: LEVALBUTEROL 1.25MG/3ML NEB SOLN NEB SCH (01:11)
[2022-11-11] MEDS: KETOROLAC 30 MG/ML 1ML VIAL IV SCH ×4 (03:45→21:10)
[2022-11-11] MEDS: PERCOCET 5MG/325MG TAB PO PRN ×4 (04:41→21:11)
[2022-11-11] MEDS ORDERED: cefTRIAXone SOD 2 GM in D5W MINI-BAG PLUS 50 ML IV SCH (05:00)
[2022-11-11] MEDS ORDERED: cefTRIAXone SOD 1 GM in D5W MINI-BAG PLUS 50 ML IV SCH ×2 (05:00)
[2022-11-11 05:05] LABS: BASO % 0.2 % (0.0-1.0); EOS # 0.5 10^3/uL (0.0-0.5); EOS % 5.6 % (0.0-3.0); HEMATOCRIT 32.6 % (42.0-52.0); LYMPH # 0.9 10^3/uL (1.5-5.0); LYMPH % 10.1 % (24.0-44.0); MEAN CORPUSCULAR HEMOGLOBIN 30.8 pg (27.0-33.0); MEAN CORPUSCULAR HGB CONC 33.7 g/dl (32.0-36.5); MEAN CORPUSCULAR VOLUME 91.3 fl (80.0-96.0); MONO # 0.9 10^3/uL (0.0-0.8); MONO % 10.4 % (2.0-8.0); NEUTROPHILS # 6.5 10^3/uL (1.5-8.5); NEUTROPHILS % 73.4 % (36.0-66.0); PLATELET COUNT, AUTOMATED 215 10^3/uL (150-450); RED BLOOD COUNT 3.57 10^6/uL (4.30-6.10); WHITE BLOOD COUNT 8.9 10^3/uL (4.0-10.0)
[2022-11-11 05:14] LABS: ERYTHROCYTE SEDIMENTATION RATE 53 mm/hr (0-20)
[2022-11-11 05:28] LABS: BLOOD UREA NITROGEN 19 MG/DL (9-23); CALCIUM LEVEL 8.6 MG/DL (8.3-10.6); CARBON DIOXIDE LEVEL 25 MMOL/L (20-31); CHLORIDE LEVEL 100 MMOL/L (98-107); CREATININE FOR GFR 0.81 MG/DL (0.70-1.30); GLOMERULAR FILTRATION RATE > 60.0 (>42); GLUCOSE, FASTING 122 MG/DL (74-106); POTASSIUM SERUM 4.4 MMOL/L (3.5-5.1); SODIUM LEVEL 134 MMOL/L (136-145)
[2022-11-11 06:06] LABS: ABG BASE EXCESS 0.7 (-2.0-2.0); ABG HCO3 25.5 MMOL/L (22.0-26.0); ABG O2 SATURATION 95.4 % (95.0-99.0); ABG PARTIAL PRESSURE CO2 41.9 mmHg (35.0-45.0); ABG PARTIAL PRESSURE O2 80.1 mmHg (75.0-100.0); ABG STANDARD HCO3 25.1 MMOL/L. (22.0-26.0); ABG TOTAL CO2 26.8 MMOL/L (23.0-31.0); ABG pH (ARTERIAL) 7.403 UNITS (7.350-7.450)
[2022-11-11] MEDS: AZITHROMYCIN 250MG TABLET PO SCH (08:34)
[2022-11-11] MEDS: DULoxetine 30MG CAPSULE (CYMBALTA) PO SCH (08:34)
[2022-11-11] MEDS: PANTOPRAZOLE 40MG TAB (PROTONIX) PO SCH (08:35)
[2022-11-11] MEDS: DOCUSATE SODIUM 100MG CAPSULE PO SCH ×2 (08:35→20:07)
[2022-11-11] MEDS: ENTRESTO 24-26MG TABLET (SACUBITRIL/VALSARTAN) PO SCH ×2 (08:36→20:07)
[2022-11-11] MEDS: CARVedilol 6.25 MG TAB PO SCH ×2 (08:36→20:07)
[2022-11-11] MEDS: LIDOCAINE 5% (LIDODERM) PATCH TD SCH (09:00)
[2022-11-11] MEDS ORDERED: ISOVUE-370 76% 100ML VIAL As Ordered ONE (10:49)
[2022-11-11] MEDS: BUPIVACAINE/NACL BAG 250 ML EPIDURAL SCH (19:58)
[2022-11-12] VITALS: BP 126/62
[2022-11-12] MEDS: ALBUTEROL 90 MCG/ACT 8GM HFA INHALER INH SCH ×4 (01:09→19:39)
[2022-11-12] MEDS: PERCOCET 5MG/325MG TAB PO PRN ×4 (03:31→22:01)
[2022-11-12] MEDS: KETOROLAC 30 MG/ML 1ML VIAL IV SCH ×4 (03:31→22:02)
[2022-11-12 04:00] VITALS: BP 129/64
[2022-11-12 04:56] LABS: BASO % 0.3 % (0.0-1.0); EOS # 0.5 10^3/uL (0.0-0.5); EOS % 7.2 % (0.0-3.0); HEMATOCRIT 31.5 % (42.0-52.0); HEMOGLOBIN 10.4 g/dl (13.5-17.5); LYMPH # 0.8 10^3/uL (1.5-5.0); LYMPH % 11.2 % (24.0-44.0); MEAN CORPUSCULAR HEMOGLOBIN 30.2 pg (27.0-33.0); MEAN CORPUSCULAR VOLUME 91.6 fl (80.0-96.0); MONO # 0.9 10^3/uL (0.0-0.8); MONO % 12.4 % (2.0-8.0); NEUTROPHILS % 68.5 % (36.0-66.0); PLATELET COUNT, AUTOMATED 221 10^3/uL (150-450); RED BLOOD COUNT 3.44 10^6/uL (4.30-6.10); WHITE BLOOD COUNT 7.3 10^3/uL (4.0-10.0)
[2022-11-12 05:25] LABS: BLOOD UREA NITROGEN 19 MG/DL (9-23); CALCIUM LEVEL 8.8 MG/DL (8.3-10.6); CARBON DIOXIDE LEVEL 25 MMOL/L (20-31); CHLORIDE LEVEL 101 MMOL/L (98-107); CREATININE FOR GFR 0.77 MG/DL (0.70-1.30); GLOMERULAR FILTRATION RATE > 60.0 (>42); GLUCOSE, FASTING 102 MG/DL (74-106); POTASSIUM SERUM 4.4 MMOL/L (3.5-5.1); SODIUM LEVEL 134 MMOL/L (136-145)
[2022-11-12 08:00] VITALS: BP 124/58
[2022-11-12] MEDS: LIDOCAINE 5% (LIDODERM) PATCH TD SCH (08:00)
[2022-11-12] MEDS: DOCUSATE SODIUM 100MG CAPSULE PO SCH (08:16)
[2022-11-12] MEDS: DULoxetine 30MG CAPSULE (CYMBALTA) PO SCH (08:16)
[2022-11-12] MEDS: PANTOPRAZOLE 40MG TAB (PROTONIX) PO SCH (08:17)
[2022-11-12] MEDS: ENTRESTO 24-26MG TABLET (SACUBITRIL/VALSARTAN) PO SCH ×2 (08:17→20:03)
[2022-11-12] MEDS: AZITHROMYCIN 250MG TABLET PO SCH (08:17)
[2022-11-12] MEDS: CARVedilol 6.25 MG TAB PO SCH ×2 (08:21→20:04)
[2022-11-12 12:00] VITALS: BP 130/63
[2022-11-12 16:00] VITALS: BP 148/75
[2022-11-12] MEDS ORDERED: BISACODYL 10MG SUPP PR PRN (18:40)
[2022-11-12] MEDS: MOM 30ML SUSPENSION UDC PO SCH ×2 (19:10→23:00)
[2022-11-12 20:00] VITALS: BP 130/62
[2022-11-12] MEDS: SENOKOT S TAB PO SCH (20:03)
[2022-11-12] MEDS: MIRALAX *UNIT DOSE* 17GM PACKET PO SCH (20:04)
[2022-11-12] MEDS: BUPIVACAINE/NACL BAG 250 ML EPIDURAL SCH (20:18)
[2022-11-13] VITALS (14 sets, daily range): BP systolic 112–138; BP diastolic 55–71; O2SAT 90–93
[2022-11-13] MEDS: ALBUTEROL 90 MCG/ACT 8GM HFA INHALER INH SCH ×4 (02:00→19:48)
[2022-11-13] MEDS ORDERED: MOM 30ML SUSPENSION UDC PO PRN (03:00)
[2022-11-13] MEDS: KETOROLAC 30 MG/ML 1ML VIAL IV SCH ×4 (04:22→20:43)
[2022-11-13] MEDS: PERCOCET 5MG/325MG TAB PO PRN ×3 (04:22→20:42)
[2022-11-13 05:44] LABS: BASO % 0.3 % (0.0-1.0); EOS # 0.4 10^3/uL (0.0-0.5); HEMATOCRIT 29.4 % (42.0-52.0); HEMOGLOBIN 10.2 g/dl (13.5-17.5); LYMPH # 0.8 10^3/uL (1.5-5.0); LYMPH % 9.3 % (24.0-44.0); MEAN CORPUSCULAR HGB CONC 34.7 g/dl (32.0-36.5); MEAN CORPUSCULAR VOLUME 89.4 fl (80.0-96.0); MONO # 1.2 10^3/uL (0.0-0.8); MONO % 13.4 % (2.0-8.0); NEUTROPHILS # 6.2 10^3/uL (1.5-8.5); NEUTROPHILS % 71.7 % (36.0-66.0); PLATELET COUNT, AUTOMATED 259 10^3/uL (150-450); RED BLOOD COUNT 3.29 10^6/uL (4.30-6.10); WHITE BLOOD COUNT 8.7 10^3/uL (4.0-10.0)
[2022-11-13 05:55] LABS: BLOOD UREA NITROGEN 15 MG/DL (9-23); CALCIUM LEVEL 8.9 MG/DL (8.3-10.6); CARBON DIOXIDE LEVEL 26 MMOL/L (20-31); CHLORIDE LEVEL 99 MMOL/L (98-107); CREATININE FOR GFR 0.77 MG/DL (0.70-1.30); GLOMERULAR FILTRATION RATE > 60.0 (>42); GLUCOSE, FASTING 100 MG/DL (74-106); POTASSIUM SERUM 4.5 MMOL/L (3.5-5.1); SODIUM LEVEL 131 MMOL/L (136-145)
[2022-11-13] MEDS ORDERED: cefTRIAXone SOD 1 GM in D5W MINI-BAG PLUS 50 ML IV SCH (06:00)
[2022-11-13] MEDS: MIRALAX *UNIT DOSE* 17GM PACKET PO SCH ×2 (09:00→20:42)
[2022-11-13] MEDS: DULoxetine 30MG CAPSULE (CYMBALTA) PO SCH (09:13)
[2022-11-13] MEDS: ENTRESTO 24-26MG TABLET (SACUBITRIL/VALSARTAN) PO SCH ×2 (09:13→20:40)
[2022-11-13] MEDS: PANTOPRAZOLE 40MG TAB (PROTONIX) PO SCH (09:13)
[2022-11-13] MEDS: SENOKOT S TAB PO SCH ×2 (09:13→20:41)
[2022-11-13] MEDS: CARVedilol 6.25 MG TAB PO SCH ×2 (09:18→20:40)
[2022-11-13] MEDS: LIDOCAINE 5% (LIDODERM) PATCH TD SCH (09:19)
[2022-11-13] MEDS ORDERED: cefTRIAXone SOD 2 GM in D5W MINI-BAG PLUS 50 ML IV SCH (09:45)
[2022-11-13] MEDS ORDERED: cefTRIAXone SOD 1 GM in D5W MINI-BAG PLUS 50 ML IV ONE (10:00)
[2022-11-14] VITALS (12 sets, daily range): BP systolic 114–129; BP diastolic 59–63; O2SAT 90–94
[2022-11-14] MEDS: ALBUTEROL 90 MCG/ACT 8GM HFA INHALER INH SCH ×2 (02:00→07:42)
[2022-11-14] MEDS: PERCOCET 5MG/325MG TAB PO PRN ×2 (04:01→09:49)
[2022-11-14] MEDS: KETOROLAC 30 MG/ML 1ML VIAL IV SCH ×2 (04:01→09:44)
[2022-11-14 04:50] LABS: BASO % 0.5 % (0.0-1.0); EOS # 0.5 10^3/uL (0.0-0.5); EOS % 8.2 % (0.0-3.0); HEMATOCRIT 32.6 % (42.0-52.0); HEMOGLOBIN 10.9 g/dl (13.5-17.5); LYMPH # 0.7 10^3/uL (1.5-5.0); LYMPH % 12.6 % (24.0-44.0); MEAN CORPUSCULAR HEMOGLOBIN 30.5 pg (27.0-33.0); MEAN CORPUSCULAR HGB CONC 33.4 g/dl (32.0-36.5); MEAN CORPUSCULAR VOLUME 91.3 fl (80.0-96.0); MONO % 17.2 % (2.0-8.0); NEUTROPHILS # 3.4 10^3/uL (1.5-8.5); NEUTROPHILS % 60.6 % (36.0-66.0); PLATELET COUNT, AUTOMATED 300 10^3/uL (150-450); RED BLOOD COUNT 3.57 10^6/uL (4.30-6.10); WHITE BLOOD COUNT 5.6 10^3/uL (4.0-10.0)
[2022-11-14 05:15] LABS: BLOOD UREA NITROGEN 16 MG/DL (9-23); CALCIUM LEVEL 8.9 MG/DL (8.3-10.6); CARBON DIOXIDE LEVEL 28 MMOL/L (20-31); CHLORIDE LEVEL 99 MMOL/L (98-107); CREATININE FOR GFR 0.87 MG/DL (0.70-1.30); GLOMERULAR FILTRATION RATE > 60.0 (>42); GLUCOSE, FASTING 92 MG/DL (74-106); POTASSIUM SERUM 4.8 MMOL/L (3.5-5.1); SODIUM LEVEL 134 MMOL/L (136-145)
[2022-11-14] MEDS ORDERED: CEFD300C41 PO (07:15)
[2022-11-14] MEDS ORDERED: BACI1CAP PO (07:15)
[2022-11-14] MEDS ORDERED: PERCOCET PO (07:15)
[2022-11-14] MEDS ORDERED: DOXY-444 PO (07:15)
[2022-11-14] MEDS: MIRALAX *UNIT DOSE* 17GM PACKET PO SCH (09:35)
[2022-11-14] MEDS: LIDOCAINE 5% (LIDODERM) PATCH TD SCH (09:35)
[2022-11-14] MEDS: ENTRESTO 24-26MG TABLET (SACUBITRIL/VALSARTAN) PO SCH (09:36)
[2022-11-14] MEDS: DULoxetine 30MG CAPSULE (CYMBALTA) PO SCH (09:36)
[2022-11-14] MEDS: SENOKOT S TAB PO SCH (09:36)
[2022-11-14] MEDS: PANTOPRAZOLE 40MG TAB (PROTONIX) PO SCH (09:37)
[2022-11-14] MEDS: CARVedilol 6.25 MG TAB PO SCH (09:37)
[2022-11-14] MEDS ORDERED: cefTRIAXone SOD 2 GM in D5W MINI-BAG PLUS 50 ML IV SCH (10:00)
[2022-11-14 16:07] LABS: BODY FLUID CULTURE Not Indicated (.); LEGIONELLA ANTIGEN URINE Negative (Negative); ORGANISM ID Not indicated. (.); SPECIMEN SOURCE Urine (.); URINE STREP PNEUMONIAE ANTIGEN Negative (Negative)
== END 2022-11-14 10:21 | disposition home or self-care (01) | DRG 199 ==
LOC: M ED 00:27 → M ED INP 05:24 → ENRESERV 06:43 → M ICU 07:39 → M PCU 11-13 15:19
PROVIDERS: ADMIT Family Medicine; ATTEND General Practice
DX: S27.0XXA Traumatic pneumothorax, initial encounter (principal); J18.9 Pneumonia, unspecified organism; J96.01 Acute respiratory failure with hypoxia; I42.0 Dilated cardiomyopathy; I50.22 Chronic systolic (congestive) heart failure; J90 Pleural effusion, not elsewhere classified; J94.2 Hemothorax; S22.41XA Multiple fractures of ribs, right side, initial encounter for closed fracture; I11.0 Hypertensive heart disease with heart failure; G47.33 Obstructive sleep apnea (adult) (pediatric); Z85.828 Personal history of other malignant neoplasm of skin; M54.59 Other low back pain; Z85.118 Personal history of other malignant neoplasm of bronchus and lung; D32.0 Benign neoplasm of cerebral meninges; W01.0XXA Fall on same level from slipping, tripping and stumbling without subsequent striking against object, initial encounter; Y92.009 Unspecified place in unspecified non-institutional (private) residence as the place of occurrence of the external cause; Z96.652 Presence of left artificial knee joint; Z96.641 Presence of right artificial hip joint

== ENCOUNTER → 2022-11-22 | Outpatient (CLI) | payer MEDICARE ==
[~2022-11-22] MED LIST changes: +BACI1CAP PO; +CARV6.25 PO; +CEFD300C41 PO; +DOXY-444 PO; +ENTR1TAB PO; +ESOM1CAP5 PO; +PERCOCET PO
== END ==
LOC: M ONCR 08:47
PROVIDERS: ATTEND General Practice
DX: C76.0 Malignant neoplasm of head, face and neck (principal); D42.0 Neoplasm of uncertain behavior of cerebral meninges; Z85.110 Personal history of malignant carcinoid tumor of bronchus and lung; Z85.830 Personal history of malignant neoplasm of bone; G47.33 Obstructive sleep apnea (adult) (pediatric); I10 Essential (primary) hypertension; I49.9 Cardiac arrhythmia, unspecified; K21.9 Gastro-esophageal reflux disease without esophagitis; Z71.2 Person consulting for explanation of examination or test findings; Z79.891 Long term (current) use of opiate analgesic; Z79.899 Other long term (current) drug therapy; Z80.1 Family history of malignant neoplasm of trachea, bronchus and lung; Z82.49 Family history of ischemic heart disease and other diseases of the circulatory system; Z87.891 Personal history of nicotine dependence; Z92.21 Personal history of antineoplastic chemotherapy; Z92.3 Personal history of irradiation

== ENCOUNTER → 2022-11-24 | Outpatient (CLI) | payer MEDICARE | LOC: M RAD 08:32 | PROVIDERS: ATTEND Thoracic Surgery (Cardiothoracic Vascular Surgery) | DX: J93.83 Other pneumothorax (principal); Z95.0 Presence of cardiac pacemaker ==

== ENCOUNTER → 2023-01-24 | Outpatient (REF) | payer MEDICARE | LOC: M LAB REF 09:07 | PROVIDERS: ATTEND Internal Medicine | DX: R97.20 Elevated prostate specific antigen [PSA] (principal) ==

== ENCOUNTER → 2023-03-09 | Outpatient (CLI) | payer MEDICARE ==
[~2023-03-09] MED LIST changes: +ISOVUE-370 76% 100ML VIAL As Ordered ONE
== END ==
LOC: M RAD 10:54
PROVIDERS: ATTEND General Practice
DX: D42.0 Neoplasm of uncertain behavior of cerebral meninges (principal)
CPT/HCPCS: 70470; Q9967

== ENCOUNTER → 2023-03-17 | Outpatient (CLI) | payer MEDICARE ==
[~2023-03-17] MED LIST changes: -ISOVUE-370 76% 100ML VIAL As Ordered ONE
== END ==
LOC: M ONCR 08:46
PROVIDERS: ATTEND General Practice
DX: D32.0 Benign neoplasm of cerebral meninges (principal); C76.0 Malignant neoplasm of head, face and neck; Z71.2 Person consulting for explanation of examination or test findings; Z79.899 Other long term (current) drug therapy; Z85.828 Personal history of other malignant neoplasm of skin; Z87.891 Personal history of nicotine dependence; Z92.25 Personal history of immunosuppression therapy; Z98.890 Other specified postprocedural states

== ENCOUNTER → 2024-01-05 | Outpatient (CLI) | payer MEDICARE ==
[~2024-01-05] MED LIST changes: +CEFD1CAP9 PO; -CEFD300C41 PO; +DOXY-440 PO; -DOXY-444 PO; +ESOM1CAP20 PO; -ESOM1CAP5 PO; +GASTROGRAFIN SOLUTION 30ML As Ordered ONE; +ISOVUE-370 76% 100ML VIAL As Ordered ONE; +LEVO30TA PO; +ROSU10TA61
== END ==
LOC: M RAD 14:25
PROVIDERS: ATTEND Internal Medicine Hematology & Oncology
DX: C44.92 Squamous cell carcinoma of skin, unspecified (principal)
CPT/HCPCS: 71260; 74177; Q9963; Q9967

== ENCOUNTER → 2024-01-12 | Outpatient (REF) | payer MEDICARE, OTHER ==
[~2024-01-12] MED LIST changes: -GASTROGRAFIN SOLUTION 30ML As Ordered ONE; -ISOVUE-370 76% 100ML VIAL As Ordered ONE
== END ==
LOC: M SMT 10:36
PROVIDERS: ATTEND Urology
DX: C61 Malignant neoplasm of prostate (principal)

== ENCOUNTER → 2024-02-13 | Outpatient (CLI) | payer MEDICARE | LOC: M RAD 08:25 | PROVIDERS: ATTEND Urology | DX: C61 Malignant neoplasm of prostate (principal) | CPT/HCPCS: 78306; A9503 ==